=== PATIENT | male | born 1965 | race Caucasian/White ===

== ENCOUNTER 2020-11-04 14:06 | Emergency (ER) | payer OTHER, SELFPAY ==
[~2020-11-04] VITALS: Ht 170.2 cm; Wt 81.6 kg
[2020-11-04 14:08] VITALS: BP 115/80; Ht 170.2 cm; Wt 81.6 kg
== END 2020-11-04 16:14 | disposition home or self-care (01) ==
LOC: ED 14:06
DX: U07.1 COVID-19 (principal)
CPT/HCPCS: U0003